=== PATIENT | male | born 1925 | race Caucasian/White ===

== ENCOUNTER → 2016-06-28 14:52 | Emergency (ER) | payer MEDICARE ==
[~2016-06-28 14:52] MED LIST: Albuterol/Ipratropium NEB.SOL* Albuterol 2.5 MG/Ipratropium 0.5 MG 3 ML INH ONE
--- NOTE | 2016-06-28 17:52 | UC ---
Respiratory Complaint HPI - HPI Summary HPI Summary: The patient comes in today for: 1. "My chest is all filled up, frightful cough--breathing is better:" Onset: 10 days ago. Palliative/provocative: Nothing makes his coughing better or worse. Quality: dry and raspy. Region: [place]. Severity: 5/10 Associated symptoms: Previous treatment: He was seen by his PCP (Dr. Ayoub). HE states that he does not see doctors much. He was not told of the diagnosis. He was put on Amoxil 500 mg, ii bid. It has not helped much. Chest pain: Present. Dyspnea: Present, but better than before. Hemoptysis: None. Previous heart or lung problems: None. * - History of Current Complaint Chief Complaint: UCGeneralIllness Stated Complaint: URI Time Seen by Provider: 06/28/16 17:36 Hx Obtained From: Patient - Allergies/Home Medications Allergies/Adverse Reactions: Allergies Allergy/AdvReac Type Severity Reaction Status Date / Time No Known Allergies Allergy Verified 06/28/16 15:07 Home Medications: Home Medications Amoxicillin CAP* [Amoxicillin 500 MG CAP*] 500 mg PO BID 06/28/16 [History Confirmed 06/28/16] PMH/Surg Hx/FS Hx/Imm Hx Previously Healthy: Yes Endocrine History Of: Denies: Diabetes, Thyroid Disease, Hyperthyroidism, Hypothyroidism, Dyslipidemia Cardiovascular History Of: Denies: Cardiac Disorders, Hypertension, Pacemaker/ICD, Myocardial Infarction , Congestive Heart Failure, Atrial Fibrillation, Deep Vein Thrombosis, Bleeding Disorders Respiratory History Of: Denies: COPD, Asthma, Bronchitis, Pneumonia, Pulmonary Embolism GI/ History Of: Denies: Gastroesophageal Reflux, Ulcer, Gastrointestinal Bleed, Gall Bladder Disease, Kidney Stones, Diverticulitis, Renal Disease, Urosepsis Neurological History Of: Denies: TIA, CVA, Dementia, Seizures, Migraine Psychological History Of: Denies: Anxiety, Depression, Bipolar Disorder, Schizophrenia, Post Traumatic Stress Disorder Cancer History Of: Denies: Lung Cancer, Colorectal Cancer, Breast Cancer, Prostate Cancer, Cervical Cancer Other History Of: Negative For: HIV, Hepatitis B, Hepatitis C, Anticoagulant Therapy - Surgical History Surgical History: Yes Surgery Procedure, Year, and Place: PROSTATE, HERNIA - Family History Known Family History: Positive: Other - Strokes. Negative: Hypertension, Diabetes Family History: NON CONTRIBUTORY - Social History Occupation: Retired Alcohol Use: None Substance Use Type: None Smoking Status (MU): Never Smoked Tobacco - Immunization History Most Recent Influenza Vaccination: pt states never gets flu shot Most Recent Pneumonia Vaccination: pt states has rec'd - year unknown Review of Systems Constitutional: Negative Skin: Negative Eyes: Negative ENT: Negative Respiratory: Cough Cardiovascular: Chest Pain All Other Systems Reviewed And Are Negative: Yes Physical Exam Triage Information Reviewed: Yes Appearance: Well-Appearing, No Pain Distress, Well-Nourished Vital Signs: Initial Vital Signs Temp 98.4 F 06/28/16 15:11 Pulse 80 06/28/16 15:11 Resp 20 06/28/16 15:11 BP 146/62 06/28/16 15:11 Pulse Ox 98 06/28/16 15:11 Vital Signs Reviewed: Yes Eyes: Positive: Conjunctiva Clear. 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 Negative: Nuchal Rigidity Respiratory: Positive: No respiratory distress, No accessory muscle use, Rhonchi - Scattered., Wheezing - Few scattered wheezing.. Negative: Chest non- tender Cardiovascular: Positive: RRR, No Murmur Abdomen Description: Positive: Nontender, No Organomegaly, Soft. Negative: Distended, Guarding Musculoskeletal: Positive: Strength Intact, ROM Intact, No Edema Neurological: Positive: Alert, Muscle Tone Normal Psychological: Positive: Age Appropriate Behavior, Consolable Skin: Negative: rashes, breakdown UC Diagnostic Evaluation - Laboratory O2 Sat by Pulse Oximetry: 95 - Radiology Xray Interpretation: No Acute Changes - Radiologist states that the CXR was normal. Radiology Interpretation Completed By: Radiologist Respiratory Course/Dx - Course Course Of Treatment: Lungs sound more clear. - Differential Dx/Diagnosis Differential Diagnosis/HQI/PQRI: Bronchitis, Laryngitis, Sinusitis Provider Diagnoses: Bronchitis with bronchospasm Discharge - Discharge Plan Condition: Stable Disposition: HOME Patient Education Materials: Acute Bronchitis (ED), Bronchospasm (ED) Referrals: Viridiana Becker MD [Primary Care Provider] - 1 Week (Please see your primary care provider in 1 weeks. If yoy get worse, please be seen sooner through your primary care provider us or the ER. If you can't get in timely, you can come in to see us.)
--- NOTE | 2016-06-28 19:13 | RAD ---
INDICATION: Chest pain and cough COMPARISON: Chest x-ray January 25, 2007 TECHNIQUE: PA and lateral views of the chest were obtained. FINDINGS: The heart and mediastinum are normal in size and contour. Mild calcification overlying the arch of the aorta is noted. The lungs are grossly clear. There is no evidence of large pleural effusion. Visualized bones are normal for the patient's age. There is no radiographic evidence of free air beneath the diaphragm IMPRESSION: No radiographic evidence of acute cardiopulmonary disease.
== END | disposition home or self-care (01) ==
LOC: UCEAST 14:52
DX: J20.9 Acute bronchitis, unspecified (principal)
CPT/HCPCS: 71020; 93005; 99212; A9270-GY; G0463

== ENCOUNTER 2016-11-09 19:04 | Emergency (ER) | payer MEDICARE ==
--- NOTE | 2016-11-09 22:59 | ED ---
[place] [facility], scribed for Kalin Monroy MD on 11/09/16 at 2217 . GI/ HPI - HPI Summary HPI Summary: The pt is an 89 y/o M accompanied by and presenting to the ED c/o abd pain s/p Moore catheter placement today at 17:30. The pt rates the pain 8/10. The pain is aggravated by drinking water and alleviated by nothing. The patient has treated the pain with Finesteride GLASSBLOWER. The last time that he had a catheter placed was 15 years ago. Pt additionally c/o hematuria, diaphoresis, and dizziness. Pt denies any other complaints at this time. PMHx: BPH. PSHx: prostate surgery. SHx: no smoking, no alcohol use, no illicit drug use. - History of Current Complaint Chief Complaint: EDAbdPain Time Seen by Provider: 11/09/16 22:08 Stated Complaint: DIZZINESS/ABD PAIN Hx Obtained From: Patient, Family/Land Development Manager - in room Onset/Duration: Started Hours Ago - Moore placement at 17:30, Still Present Timing: Constant Current Severity: Moderate Pain Intensity: 8 Location of Pain: None - abd Associated Signs and Symptoms: Positive: Dizziness, Diaphoresis, Hematuria, Abdominal Pain - s/p moore placement. Negative: Fever Aggravating Factor(s): Liquids Alleviating Factor(s): Nothing - Allergy/Home Medications Allergies/Adverse Reactions: Allergies Allergy/AdvReac Type Severity Reaction Status Date / Time No Known Allergies Allergy Verified 11/09/16 19:19 PMH/Surg Hx/FS Hx/Imm Hx Previously Healthy: No Endocrine/Hematology History: Denies: Hx Anticoagulant Therapy, Hx Diabetes, Hx Thyroid Disease Cardiovascular History: Denies: Hx Congestive Heart Failure, Hx Deep Vein Thrombosis, Hx Hypertension , Hx Myocardial Infarction, Hx Pacemaker/ICD Respiratory History: Denies: Hx Asthma, Hx Chronic Obstructive Pulmonary Disease (COPD), Hx Lung Cancer, Hx Pneumonia, Hx Pulmonary Embolism GI History: Denies: Hx Gall Bladder Disease, Hx Gastrointestinal Bleed, Hx Ulcer, Hx Urosepsis History: Reports: Hx Benign Prostatic Hyperplasia Denies: Hx Kidney Stones, Hx Renal Disease Neurological History: Denies: Hx Dementia, Hx Migraine, Hx Seizures, Hx Transient Ischemic Attacks (TIA) Psychiatric History: Denies: Hx Anxiety, Hx Depression, Hx Schizophrenia, Hx Bipolar Disorder - Surgical History Surgery Procedure, Year, and Place: PROSTATE, HERNIA Infectious Disease History: No Infectious Disease History: Denies: Traveled Outside the [place] in Last 30 Days - Family History Known Family History: Positive: Other - Strokes. Negative: Hypertension, Diabetes - Social History Alcohol Use: None Substance Use Type: Reports: None Smoking Status (MU): Never Smoked Tobacco Review of Systems Positive: Skin Diaphoresis. Negative: Fever Positive: Abdominal Pain - s/p Moore catheter placement today at 17:30 Positive: hematuria Neurological: Other - POS: dizziness All Other Systems Reviewed And Are Negative: Yes Physical Exam Triage Information Reviewed: Yes Vital Signs On Initial Exam: Initial Vitals Temp Pulse Resp BP Pulse Ox 97.6 F 77 16 137/57 98 11/09/16 19:14 11/09/16 19:14 11/09/16 19:14 11/09/16 19:14 11/09/16 19:14 Vital Signs Reviewed: Yes Appearance: Positive: Well-Appearing, Pain Distress - mild discomfort Skin: Positive: Warm Head/Face: Positive: Normal Head/Face Inspection Eyes: Positive: JUAN ENT: Positive: Hearing grossly normal Neck: Positive: Supple Respiratory/Lung Sounds: Positive: Clear to Auscultation, Breath Sounds Present Cardiovascular: Positive: RRR Abdomen Description: Positive: Soft, Distended - mild. Negative: CVA Tenderness (R), CVA Tenderness (L) Bowel Sounds: Positive: Present Musculoskeletal: Positive: Strength/ROM Intact Neurological: Positive: Alert, Oriented to Person Place, Time Psychiatric: Positive: Affect/Mood Appropriate - Tricia Coma Scale Coma Scale Total: 15 Diagnostics - Vital Signs Vital Signs Temp Pulse Resp BP Pulse Ox 11/09/16 21:39 77 145/70 98 11/09/16 19:19 97.6 F 77 16 137/57 98 11/09/16 19:14 97.6 F 77 16 137/57 98 - Laboratory Result Diagrams: 11/09/16 23:10 11/09/16 23:10 Lab Statement: Any lab studies that have been ordered have been reviewed, and results considered in the medical decision making process. GIGU Course/Dx - Course Assessment/Plan: The pt is an 89 y/o M accompanied by and presenting to the ED c/o abd pain s/p Moore catheter placement today at 17:30. The pt rates the pain 8/10. The pain is aggravated by drinking water and alleviated by nothing. The patient has treated the pain with Finesteride GLASSBLOWER. The last time that he had a catheter placed was 15 years ago. Pt additionally c/o hematuria, diaphoresis, and dizziness. Pt denies any other complaints at this time. PMHx: BPH. PSHx: prostate surgery. SHx: no smoking, no alcohol use, no illicit drug use. Blood work shows Hgb 13.7, Hct 40, Plt count 137, Creatinine 1.24, Glucose 140. UA shows 3+ blood, 1+ leukocyte esterase, 2+ RBC, and 1+ bacteria. Patient is diagnosed with hematuria. Patient will be discharged home with follow up by PCP. Patient is agreeable to this plan. - Diagnoses Provider Diagnoses: Hematuria Discharge - Discharge Plan Condition: Stable Disposition: HOME Patient Education Materials: Hematuria (ED) Referrals: Viridiana Becker MD [Primary Care Provider] - 3 Days The documentation as recorded by the [place] [facility] accurately reflects the service I personally performed and the decisions made by Porfirio bean David, MD.
[2016-11-09 23:22] LABS: Hematocrit 40 % (42-52); Hemoglobin 13.7 g/dl (14.0-18.0); Mean Corpuscular HGB Conc 35 g/dl (31-36); Mean Corpuscular Hemoglobin 31 pg (27-31); Mean Corpuscular Volume 89 fL (80-94); Mean Platelet Volume 11 um3 (7.4-10.4); Red Blood Count 4.43 10^6/ul (4.0-5.4); Red Cell Distribution Width 14 % (10.5-15); White Blood Count 10.2 10^3/ul (3.5-10.8)
[2016-11-09 23:39] LABS: BUN/Creatinine Ratio 16.9 (8-20); Calcium 9.2 mg/dL (8.6-10.3); EGFR African American 70.6 (>60); EGFR Non-African American 54.9 (>60); Potassium 4.9 mmol/L (3.5-5.0)
[2016-11-09 23:51] VITALS: BP 143/61
[2016-11-09 23:56] LABS: Urine Bacteria 1+ (Absent); Urine Bilirubin Negative (Negative); Urine Glucose Negative (Negative); Urine Nitrite Negative (Negative)
== END 2016-11-10 00:29 | disposition home or self-care (01) ==
LOC: ED 19:04
DX: R31.9 Hematuria, unspecified (principal); R42 Dizziness and giddiness; Z46.6 Encounter for fitting and adjustment of urinary device
CPT/HCPCS: 36415; 80048; 81003; 81015; 85025; 87086; 99283

== ENCOUNTER 2016-11-16 10:49 | Observation (INO) | payer MEDICARE ==
--- NOTE | 2016-11-11 22:03 | HP ---
CC: Carmita Tran MD; Myke Michaels MD * ADMITTING HISTORY AND PHYSICAL: DATE OF ADMISSION: 11/16/16 AGE: 89 years, male. ADMITTING DIAGNOSIS: 1. Gross hematuria. 2. Clot retention. PLANNED PROCEDURE: Cystoscopy, transurethral resection of prostate, clot evacuation, possible bladder biopsy. SURGEON: Myke Michaels MD. HISTORY OF PRESENT ILLNESS: Bryce Monae is an 89-year-old gentleman who has had episodic gross hematuria over the last few years, progressively getting more frequent and more intense. His past urologic history is significant for what appears to have been a transurethral resection of prostate done 15 years ago in [place]. When I initially examined him, his prostate was noted to be markedly enlarged with firmness in the right lobe of the prostate. Cystoscopy done in my office had revealed what appears to significant regrowth of prostate tissue with bleeding noted from the right lobe of the prostate. It was very difficult to visualize the interior of the bladder secondary to blood clots. A 22-Upper Sorbian Rodriguez catheter was placed and irrigated and he is now being brought in for further evaluation and management of the hematuria and the clot retention. His primary care is Dr. Tran and I had called and requested her to see him for a preoperative evaluation to rule out any major cardiovascular morbidity. PAST MEDICAL HISTORY: Otherwise unremarkable. Specifically, there is no history of diabetes or any other major systemic illness. PAST SURGICAL HISTORY: Significant for transurethral resection of prostate 15 years ago and a left total knee replacement in 2006 and inguinal hernia surgery. MEDICATIONS: On admission, Proscar 5 mg a day (started last week). ALLERGIES: No known drug allergies. SOCIAL HISTORY: Smoking history, he is a nonsmoker. PHYSICAL EXAMINATION GENERAL: Reveals a pleasant elderly gentleman. VITAL SIGNS: Blood pressure is 150/86, pulse 90 per minute, oxygen saturation 96% on room air. LUNGS: Clear bilaterally. CARDIOVASCULAR: S1 and S2. Regular rate and rhythm. ABDOMEN: Soft without masses. A Rodriguez catheter is in place with hematuria noted. IMPRESSION: An 89-year-old gentleman with recurrent gross hematuria and clot retention. Planned procedure is transurethral resection of prostate, clot evacuation, possible bladder biopsy. [id number]/[facility] #: [id number] [facility]
[~2016-11-16 10:49] MED LIST changes: -Albuterol/Ipratropium NEB.SOL* Albuterol 2.5 MG/Ipratropium 0.5 MG 3 ML INH ONE; +Buffered Lidocaine 0.9% SYRIN* 5 ML/SYR SYRINGE INTRADERM ONE; +Dexamethasone IV* 4 MG/ML 1 ML (4 MG) IV SLOW PU ONE; +Famotidine IV* 10 MG/ML 2 ML (20 mg) IV ONE
[2016-11-16] MEDS ORDERED: Dexamethasone IV* 4 MG/ML 1 ML (4 MG) ONE (11:05)
[2016-11-16] MEDS ORDERED: Famotidine IV* 10 MG/ML 2 ML (20 mg) ONE (11:05)
[2016-11-16] MEDS ORDERED: Buffered Lidocaine 0.9% SYRIN* 5 ML/SYR SYRINGE ONE (11:06)
[2016-11-16] MEDS ORDERED: cefTRIAXone(*) 2 GM ADDV.VIAL IVPB ONE (11:06)
[2016-11-16] MEDS ORDERED: Furosemide IV* 10 MG/ML 2 ML VIAL (20 MG) ONE (12:46)
[2016-11-16] MEDS ORDERED: Propofol* 10 MG/ML 20 ML BTL IV PUSH ONE (12:46)
[2016-11-16] MEDS ORDERED: Lidocaine 2% PF * 5 ML VIAL ONE (12:46)
[2016-11-16] MEDS ORDERED: fentaNYL* 50 MCG/ML 2 ML VIAL (100 MCG VIAL) ONE ×3 (13:01→14:28)
[2016-11-16] MEDS ORDERED: Esmolol* 10 MG/ML 10 ML (100 mg) ONE (13:23)
[2016-11-16] MEDS ORDERED: Ondansetron INJ* 2 MG/ML VIAL IV PRN (14:04)
[2016-11-16] MEDS ORDERED: oxyCODONE/Acetamin 5/325 MG* TAB ONE (14:08)
[2016-11-16] MEDS: fentaNYL* 50 MCG/ML 2 ML VIAL (100 MCG VIAL) IV PRN ×5 (14:10→14:28)
[2016-11-16] MEDS ORDERED: HYDROmorphone* 1 MG/ML 1 ML SYR ONE (14:33)
[2016-11-16] MEDS: HYDROmorphone* 1 MG/ML 1 ML SYR IV PRN ×2 (14:35→14:40)
[2016-11-16] MEDS ORDERED: Oxybutynin TAB* 5 MG ONE (15:26)
[2016-11-16] MEDS ORDERED: Senna TAB PO PRN (16:38)
[2016-11-16] MEDS ORDERED: Acetaminophen TAB* 325 MG PO PRN (16:39)
[2016-11-16] MEDS: Lidocaine 2% JELLY* 6 ML JELLY TOPICAL SCH (19:21)
[2016-11-16] MEDS: Docusate CAP* 100 MG PO SCH (21:07)
[2016-11-16] MEDS: Psyllium PAK PO SCH (21:07)
[2016-11-16] MEDS: Oxybutynin TAB* 5 MG PO SCH (21:07)
[2016-11-16] MEDS: oxyCODONE/Acetamin 5/325 MG* TAB PO PRN (23:39)
[2016-11-17] MEDS: Oxybutynin TAB* 5 MG PO SCH ×2 (03:26→09:12)
--- NOTE | 2016-11-17 04:38 | OP ---
CC: Dr. Tran * DATE OF OPERATION: 11/16/16 - ROOM #335 DATE OF : [birth year] SURGEON: Myke Michaels MD ANESTHESIOLOGIST: Rizwan Preciado MD ANESTHESIA: General. PRE-OP DIAGNOSES: 1. Gross hematuria. 2. Clot retention. 3. Prostate enlargement. POST-OP DIAGNOSES: 1. Gross hematuria. 2. Clot retention. 3. Prostate enlargement. OPERATIVE PROCEDURE: 1. Cystoscopy. 2. Clot evacuation. 3. Transurethral resection of prostate. INDICATIONS: Bryce Monae is an 89-year-old gentleman who was evaluated last week on an urgent basis because of gross hematuria and clot retention. He underwent cystoscopy and placement of a Rodriguez catheter in the office and catheter irrigation. He continued to have episodic gross hematuria and was kindly evaluated by Dr. Tran for a preoperative evaluation. COMPLICATIONS: None. ESTIMATED BLOOD LOSS: Approximately 150 cc. OPERATIVE FINDINGS: Enlarged highly vascular asymmetric regrowth of prostate tissue with clots in urinary bladder. POSTOPERATIVE CONDITION: Stable. CATHETER: 24-Macedonian Rodriguez. DESCRIPTION OF PROCEDURE: After induction of general anesthesia, the patient was placed in dorsal lithotomy position. Sequential compression devices were in place and functioning. The previously placed Rodriguez had been removed, cystoscopy was performed. The urethra appeared normal. The prostatic urethra was asymmetric and irregular and highly vascular with regrowth of lateral lobe tissue noted from the base all the way to the apex. Some of this tissue was protruding into the bladder neck area and was also highly vascular and bleeding. There were few clots noted in the bladder, which were irrigated out. The bladder itself was examined and appeared unremarkable with no evidence of any tumors noted. It was clear that the bleeding was coming from the prostate as even prior to the resection, there were several areas of bleeding noted in the prostatic urethra. Using the resectoscope, transurethral resection of the prostate was carried out from the bladder neck down to the veru, the tissue was fairly gritty and highly vascular. The resected tissue was removed from the bladder using the Irma evacuator, 24-Macedonian Rodriguez was introduced without difficulty and connected to a drainage bag. The patient tolerated the procedure satisfactorily and was transferred back to the recovery area in stable condition. [id number]/[facility] #: [id number] [facility]
[2016-11-17] MEDS: oxyCODONE/Acetamin 5/325 MG* TAB PO PRN (07:54)
[2016-11-17 08:21] VITALS: BP 102/45
[2016-11-17] MEDS: Psyllium PAK PO SCH (09:12)
[2016-11-17] MEDS: Lidocaine 2% JELLY* 6 ML JELLY TOPICAL SCH (09:12)
[2016-11-17] MEDS: Docusate CAP* 100 MG PO SCH (09:12)
== END 2016-11-17 11:50 | disposition home or self-care (01) ==
LOC: OR 10:49 → SSU 16:09
PROVIDERS: ADMIT Urology; ATTEND Urology
DX: R31.0 Gross hematuria (principal); N40.1 Benign prostatic hyperplasia with lower urinary tract symptoms; R33.8 Other retention of urine; I25.10 Atherosclerotic heart disease of native coronary artery without angina pectoris; I25.2 Old myocardial infarction
CPT/HCPCS: 88305; 94760; 96374; 96375; A9270-GY; G0378; J0696; J1100; J1170; J1580; J1940; J2704; J3010